=== PATIENT | male | born 1970 ===

== ENCOUNTER 2018-10-26 15:07 | Emergency (ER) | payer OTHER ==
--- NOTE | 2018-10-26 15:59 | C.PDOC ---
History Of Present Illness 48 y/o male presents to the ED for evaluation of worsening bilateral lower back pain and masses x 2 weeks. Patient reports having deep skin masses in his lower back for 1 year, localized near the belt line, which have gradually grown larger. It is unclear whether there has been significant growth in the past few weeks, though pain has been worsening recently. Pain worsens with movement and palpation. Otherwise he denies any inability to ambulate, urinary complaints, trauma, or discharge from area. Time Seen by Provider: 10/26/18 15:36 Chief Complaint (Nursing): Back Pain History Per: Patient History/Exam Limitations: no limitations Onset/Duration Of Symptoms: Days Current Symptoms Are (Timing): Worse Associated Symptoms: None Past Medical History Reviewed: Historical Data, Nursing Documentation, Vital Signs Vital Signs: Last Vital Signs Temp 98.3 F 10/26/18 15:18 Pulse 64 10/26/18 15:18 Resp 18 10/26/18 15:18 BP 192/108 H 10/26/18 15:51 Pulse Ox 100 10/26/18 15:18 - Medical History PMH: Back Problems (subcutaneous masses to low back x 1 yr) Surgical History: No Surg Hx Family History: States: No Known Family Hx - Social History Hx Alcohol Use: Yes Hx Substance Use: No - Immunization History Hx Tetanus Toxoid Vaccination: No Hx Influenza Vaccination: No Hx Pneumococcal Vaccination: No Review Of Systems Constitutional: Negative for: Fever, Chills Gastrointestinal: Negative for: Abdominal Pain Genitourinary: Negative for: Dysuria, Frequency, Hematuria Musculoskeletal: Positive for: Back Pain Skin: Positive for: Other (masses to lower back). Negative for: Rash Neurological: Negative for: Weakness, Numbness, Incoordination Physical Exam - Physical Exam Appears: Non-toxic, No Acute Distress Skin: Warm, Dry Head: Atraumatic, Normacephalic Eye(s): bilateral: Normal Inspection, PERRL, EOMI Neck: Normal ROM Chest: Symmetrical Cardiovascular: Rhythm Regular, No Murmur Respiratory: Normal Breath Sounds, No Accessory Muscle Use Gastrointestinal/Abdominal: Soft, No Tenderness, No Distention Back: No Vertebral Tenderness, Other (Left > right deep subcutaneous firm masses, which are mobile, with questionable fluctuance; no gross asymmetry, swelling, or deformity) Extremity: Bilateral: Atraumatic, Normal ROM (x4) Pulses: Left Dorsalis Pedis: Normal, Right Dorsalis Pedis: Normal Neurological/Psych: Oriented x3 ED Course And Treatment - Laboratory Results Result Diagrams: 10/26/18 16:15 10/26/18 16:15 O2 Sat by Pulse Oximetry: 100 (RA) Pulse Ox Interpretation: Normal - CT Scan/US CT Abdomen/Pelvis Other Rad Studies (CT/US): Read By Radiologist, Radiology Report Reviewed CT/US Interpretation: Accession No. : [id number]. Patient Name / ID : ELENA HAYS / [id number]. Exam Date : 10/26/2018 17:11:35 ( Approved ). Study Comment : Sex / Age : M / 48Y. Creator : Madiha Rivera. Dictator : Cristian Santana MD. Day Care Director : Software Designer : Cristian Santana MD. Approver2 : Report Date : 10/26/2018 17:20:15. My Comment : . Date of service: 10/26/2018. PROCEDURE: CT Abdomen and Pelvis with contrast. HISTORY: bl lower back/subcut masses ro abscess. COMPARISON: None. TECHNIQUE: Contrast dose: 100 mL Visipaque 320. Radiation dose: Total exam DLP = 600.65 mGy-cm. This CT exam was performed using one or more of the following dose reduction techniques: Automated exposure control, adjustment of the mA and/or kV according to patient size, and/or use of iterative reconstruction technique. FINDINGS: LOWER THORAX: Unremarkable. LIVER: Unremarkable. No gross lesion or ductal dilatation. GALLBLADDER AND BILE DUCTS: Unremarkable. PANCREAS: Unremarkable. No gross lesion or ductal dilatation. SPLEEN: Unremarkable. ADRENALS: Unremarkable. No mass. KIDNEYS AND URETERS: Unremarkable. No hydronephrosis. No solid mass. VASCULATURE: Unremarkable. No aortic aneurysm. No aortic atherosclerotic calcification or mural plaque present. BOWEL: Unremarkable. No obstruction. No gross mural thickening. A PPENDIX: Normal appendix. PERITONEUM: Unremarkable. No free fluid. No free air. LYMPH NODES: Unremarkable. No enlarged lymph nodes. BLADDER: Suboptimally distended. No gross abnormality. REPRODUCTIVE: Normal prostate. BONES: No acute fracture. OTHER FINDINGS: There are no masses seen in the posterior abdominal or chest wall. Please note that the area of reported palpable masses was not marked on the patient's skin for this examination due to technical over site. IMPRESSION: No evidence of abscess. No mass identified. There is persistent suspicion of a mass or multiple masses, consider nonemergent evaluation with magnetic resonance imaging for detection of possible lipomaas. Progress - Re-Evaluation Re-evaluation Note: 10/26/18 17:50 FEELS BETTER. DC FU CLINIC, HTN RX - Data Reviewed Data Reviewed: Lab, Diagnostic imaging, Old records Medical Decision Making Medical Decision Making: Impression: Back masses and pain Spoke with radiology, who recommends IV contrast for scan to best visualize subcutaneous masses. Initial Plan: - Labs - CT Abdomen/Pelvis w/ IV contrast - 30 mg IV Toradol Disposition Counseled Patient/Family Regarding: Studies Performed, Diagnosis, Need For Fo llowup, Rx Given - Disposition Referrals: [facility] [Outside] [facility] [Outside] Disposition: HOME/ ROUTINE Disposition Time: 17:50 Condition: IMPROVED Prescriptions: amLODIPine [Norvasc] 5 mg PO DAILY #15 tab Instructions: Lipoma , High Blood Pressure (DC) Forms: [employer] ([place]an) Print Language: TURKISH - Clinical Impression Clinical Impression: Low back pain, Lipoma, Hypertension - Scribe Statement The provider has reviewed the documentation as recorded by the Gus Nava Provider Attestation: All medical record entries made by the Gus were at my direction and personally dictated by me. I have reviewed the chart and agree that the record accurately reflects my personal performance of the history, physical exam, medical decision making, and the department course for this patient. I have also personally directed, reviewed, and agree with the discharge instructions and disposition.
[2018-10-26 16:10] VITALS: TEMP 98.3; O2SAT 100
[2018-10-26 16:21] LABS: BASO % 0.5 % (0.0-2.0); EOS # 0.1 K/uL (0.0-0.7); EOS % 1.8 % (0.0-4.0); HEMOGLOBIN 14.8 g/dL (12.0-18.0); LYMPH # 2.5 K/uL (1.0-4.3); LYMPH % 32.6 % (20.0-40.0); MEAN CELL VOLUME 90.6 fL (80.0-94.0); MEAN CORPUSCULAR HEMOGLOBIN 30.1 pg (27.0-31.0); MEAN CORPUSCULAR HGB CONC 33.2 g/dL (33.0-37.0); MEAN PLATELET VOLUME 9.1 fL (7.2-11.7); MONO # 0.5 K/uL (0.0-0.8); MONO % 6.5 % (0.0-10.0); NEUT # 4.5 K/uL (1.8-7.0); NEUT % 58.6 % (50.0-75.0); RBC 4.93 Mil/uL (4.40-5.90); RED CELL DISTRIBUTION WIDTH 12.9 % (11.5-14.5); WHITE BLOOD COUNT 7.6 K/uL (4.8-10.8)
[2018-10-26 16:29] LABS: SQUAMOUS EPITHIAL 1 /hpf (0-5); URINE BILIRUBIN NEGATIVE (NEGATIVE); URINE BLOOD NEGATIVE (NEGATIVE); URINE CLARITY Clear (Clear); URINE COLOR Straw (YELLOW); URINE GLUCOSE (UA) NORMAL (Normal); URINE LEUKOCYTE ESTERASE NEG Leu/uL (Negative); URINE PROTEIN NEGATIVE (NEGATIVE); URINE UROBILINOGEN NORMAL mg/dL (0.2-1.0)
[2018-10-26 16:39] LABS: BLOOD UREA NITROGEN 17 mg/dL (9-20); CALCIUM 9.1 mg/dl (8.6-10.4); GFR NON-AFRICAN AMERICAN > 60
[2018-10-26] MEDS ORDERED: Iodixanol 320 MG/ML 100 ML BOTTLE IV ONE (16:50)
[2018-10-26 17:35] VITALS: BP 149/85; PULSE 55; RESP 12
--- NOTE | 2018-10-26 17:42 | CT ---
Date of service: 10/26/2018 PROCEDURE: CT Abdomen and Pelvis with contrast HISTORY: bl lower back/subcut masses ro abscess COMPARISON: None. TECHNIQUE: Contrast dose: 100 mL Visipaque 320 Radiation dose: Total exam DLP = 600.65 mGy-cm. This CT exam was performed using one or more of the following dose reduction techniques: Automated exposure control, adjustment of the mA and/or kV according to patient size, and/or use of iterative reconstruction technique. FINDINGS: LOWER THORAX: Unremarkable. LIVER: Unremarkable. No gross lesion or ductal dilatation. GALLBLADDER AND BILE DUCTS: Unremarkable. PANCREAS: Unremarkable. No gross lesion or ductal dilatation. SPLEEN: Unremarkable. ADRENALS: Unremarkable. No mass. KIDNEYS AND URETERS: Unremarkable. No hydronephrosis. No solid mass. VASCULATURE: Unremarkable. No aortic aneurysm. No aortic atherosclerotic calcification or mural plaque present. BOWEL: Unremarkable. No obstruction. No gross mural thickening. APPENDIX: Normal appendix. PERITONEUM: Unremarkable. No free fluid. No free air. LYMPH NODES: Unremarkable. No enlarged lymph nodes. BLADDER: Suboptimally distended. No gross abnormality. REPRODUCTIVE: Normal prostate BONES: No acute fracture. OTHER FINDINGS: There are no masses seen in the posterior abdominal or chest wall. Please note that the area of reported palpable masses was not marked on the patient's skin for this examination due to technical over site. IMPRESSION: No evidence of abscess. No mass identified. There is persistent suspicion of a mass or multiple masses, consider nonemergent evaluation with magnetic resonance imaging for detection of possible lipomaas.
== END 2018-10-26 18:12 | disposition home or self-care (01) ==
LOC: C.ER 15:07
DX: M54.5 Low back pain (principal); I10 Essential (primary) hypertension; D17.1 Benign lipomatous neoplasm of skin and subcutaneous tissue of trunk
CPT/HCPCS: 74177; 80048; 81001; 85025; 96374; 99285; J1885; Q9967

== ENCOUNTER 2018-12-13 12:55 | Outpatient (CLI) | payer OTHER | END 2018-12-13 12:56 | disposition home or self-care (01) | LOC: C.USIC 12:56 ==